=== PATIENT | female | born 1990 | race Caucasian/White ===

== ENCOUNTER 2020-10-16 09:08 | Emergency (ER) | payer OTHER ==
[~2020-10-16] VITALS: Ht 147.3 cm; Wt 30.4 kg
[2020-10-16 09:13] VITALS: BP 134/100; Ht 147.3 cm; Wt 30.4 kg
== END 2020-10-16 11:29 | disposition home or self-care (01) ==
LOC: ED 09:08
DX: Z43.1 Encounter for attention to gastrostomy (principal)
CPT/HCPCS: Q9967